=== PATIENT | female | born 1990 | race Caucasian/White ===

== ENCOUNTER 2021-02-24 16:17 | Emergency (ER) | payer OTHER, SELFPAY ==
[2021-02-24 16:26] VITALS: BP 137/78; PULSE 87; RESP 16; TEMP 36.8; O2SAT 100
--- NOTE | 2021-02-24 16:58 | ED.FEMALEGU ---
HPI - Female Genitourinary General Chief complaint: Urogenital-Female Stated complaint: Possible UTI or possible Kidney infection Time Seen by Provider: 02/24/21 16:59 Source: patient Mode of arrival: ambulatory Limitations: no limitations History of Present Illness HPI Narrative: 30 year old female who presents to [facility] care with complaints of having burning of urination for the past 2 weeks with decrease in urine. Patient reports that she has had some suprapubic pressure with some bilateral flank pain, denies any known fevers. chills, or sweats. Patient has history of chronic bladder dysfunction and has had to do urine catheterizations in the past. Patient denies any known fevers, chills or sweats, denies any vaginal discharge or itching or concerns of possible STD's. MD elicited complaint: dysuria Related Data Home Medications Medication Instructions Recorded Confirmed lamotrigine [Lamictal] 100 mg PO DAILY 02/24/21 02/24/21 risperidone [Risperdal] 0.5 mg PO DAILY 02/24/21 02/24/21 Allergies Allergy/AdvReac Type Severity Reaction Status Date / Time allantoin [From Orajel] Allergy swelling Verified 02/24/21 16:42 gums benzalkonium chloride Allergy swelling Verified 02/24/21 16:42 [From Orajel] gums benzocaine [From Orajel] Allergy swelling Verified 02/24/21 16:42 gums carbamide peroxide Allergy swelling Verified 02/24/21 16:42 [From Orajel] gums menthol Allergy throat Verified 02/24/21 16:42 closes trazodone Allergy burning to Verified 02/24/21 16:42 feet zinc chloride [From Orajel] Allergy swelling Verified 02/24/21 16:42 gums Review of Systems Review of Systems: CONSTITUTIONAL: Denies fever, chills, or sweats. EYES: Denies visual changes, redness, or discharge. ENT: Denies rhinorrhea, congestion, sore throat, or otalgia. CARDIOVASCULAR: Denies chest pain, palpitations, or edema. RESPIRATORY: Denies cough or dyspnea. GASTROINTESTINAL: Suprapubic area abdominal pain, she denies any nausea vomiting or diarrhea GENITOURINARY: positive dysuria or hematuria. SKIN: Denies rash or itching. MUSCULOSKELETAL: Positive bilateral flank pain, no joint pain, or myalgia. NEUROLOGIC: Denies headache, numbness, or weakness. PSYCHIATRIC: Positive for anxiety or depression. All systems reviewed & are unremarkable except as noted in HPI and below PMFSH Past Medical History Medical History (Updated 02/27/21 @ 10:25 by Tamiko Johnson NP) Asthma Bipolar 1 disorder Collapsed lung Concussion COPD (chronic obstructive pulmonary disease) Fracture, clavicle Fracture, ribs Fractured nose UTI (urinary tract infection) Surgical History Surgical History (Updated 02/27/21 @ 10:27 by Tamiko Johnson NP) H/O chest tube placement Family History Family History (Updated 02/26/21 @ 16:35 by Tamiko Johnson NP) Grandparent Breast cancer Malignant neoplasm of prostate Throat cancer Cancer of thyroid History of kidney cancer Mother Heart disease Bipolar 1 disorder Father Cerebrovascular accident Heart disease Diabetes mellitus Other Brain aneurysm Hypertension Social History Social History (Updated 02/24/21 @ 17:19 by Tamiko Johnson NP) Smoking packs per day: 1 Smoking cigarettes per day: 20.0 Years smoked: 19 Smoking pack-years: 19.00 Smoking status: Current every day smoker Alcohol intake: former Alcohol use details: going to meetings Substance use: current Substance use type: marijuana Living arrangements: with family Gender identity (if verbalized by the patient): Female Comments At time of signature, agree with nursing past medical, surgical, social and family history. There is no relevant family history pertinent to the presenting complaint Exam Narrative: GENERAL: Well-appearing, well-nourished, and in no acute distress. HEAD: Normocephalic, atraumatic. EYES: PERRLA and EOMI. ENT: Nares clear, no rhinorrhea or epi
== END 2021-02-24 17:27 | disposition home or self-care (01) ==
PROVIDERS: Emergency Provider Registered Nurse; PCP Nurse Practitioner Family
DX: N39.0 Urinary tract infection, site not specified (principal); F17.210 Nicotine dependence, cigarettes, uncomplicated; J45.909 Unspecified asthma, uncomplicated; J44.9 Chronic obstructive pulmonary disease, unspecified; F31.9 Bipolar disorder, unspecified
CPT/HCPCS: 81003; 87086; 87088; 99213; G0463

== ENCOUNTER 2021-05-20 08:53 | Emergency (ER) | payer OTHER, SELFPAY ==
[2021-05-20 09:10] VITALS: BP 118/72; PULSE 87; RESP 20; TEMP 36.6; O2SAT 99
--- NOTE | 2021-05-20 09:56 | ED.URI ---
HPI - URI/Sore Throat General Chief Complaint: Upper Respiratory Infection Stated Complaint: Congestion,Cough Source: patient and RN notes reviewed Limitations: no limitations History of Present Illness HPI Narrative: The patient, here with sick daughter with otitis, has a shorter 1 day history of cough, congestion nasal drip and occasional sneezing. Symptoms are mild somewhat worse at night; there are pet cat/smoker triggers in the house. No fever [T 99], wheezing, vomiting/diarrhea, frequency/dysuria. Patient requests refill of inhaler Related Data Home Medications Medication Instructions Recorded Confirmed lamotrigine [Lamictal] 100 mg PO DAILY 02/24/21 05/20/21 risperidone [Risperdal] 0.5 mg PO DAILY 02/24/21 05/20/21 Allergies Allergy/AdvReac Type Severity Reaction Status Date / Time allantoin [From Orajel] Allergy swelling Verified 05/20/21 09:12 gums benzalkonium chloride Allergy swelling Verified 05/20/21 09:12 [From Orajel] gums benzocaine [From Orajel] Allergy swelling Verified 05/20/21 09:12 gums carbamide peroxide Allergy swelling Verified 05/20/21 09:12 [From Orajel] gums menthol Allergy throat Verified 05/20/21 09:12 closes trazodone Allergy burning to Verified 05/20/21 09:12 feet zinc chloride [From Orajel] Allergy swelling Verified 05/20/21 09:12 gums Review of Systems Review of Systems: General/Constitutional: No weight loss,fever Eyes: N0: Redness,discharge Ears/Nose/Throat: No: Epistaxis,ear discharge Respiratory: Denies: Hemoptysis Gastrointestinal: No Vomiting, Bleeding-rectal Skin: No Lumps, eruption Neurologic: No Focal Weakness,Sz Hematologic: Denies: Petechiae/Purpura Psychiatric: No: Suicida ideationl All Other Systems: Reviewed and Negative [facility] Past Medical History Medical History (Updated 05/20/21 @ 10:02 by Arron Moore MD) Asthma Bipolar 1 disorder Collapsed lung Concussion COPD (chronic obstructive pulmonary disease) Fracture, clavicle Fracture, ribs Fractured nose UTI (urinary tract infection) Surgical History Surgical History (Updated 02/27/21 @ 10:27 by Tamiko Johnson NP) H/O chest tube placement Family History Family History (Updated 02/26/21 @ 16:35 by Tamiko Johnson NP) Grandparent Breast cancer Malignant neoplasm of prostate Throat cancer Cancer of thyroid History of kidney cancer Mother Heart disease Bipolar 1 disorder Father Cerebrovascular accident Heart disease Diabetes mellitus Other Brain aneurysm Hypertension Social History Social History (Updated 02/24/21 @ 17:19 by Tamiko Johnson NP) Smoking packs per day: 1 Smoking cigarettes per day: 20.0 Years smoked: 19 Smoking pack-years: 19.00 Smoking status: Current every day smoker Alcohol intake: former Alcohol use details: going to meetings Substance use: current Substance use type: marijuana Gender identity (if verbalized by the patient): Female Comments At time of signature, agree with nursing past medical, surgical, social and family history. There is no relevant family history pertinent to the presenting complaint Exam Narrative: General Appearance: Well appearing, Well nourished EYE: PERRLA, Conjunctiva clear Ears: Auditory canal normal, TM normal Nose: Rhinorrhea, Mucousal erythema Mouth/Throat: MM moist, Uvula midline, Pharyngeal erythema Neck: Supple, No adenopathy Respiratory: No respiratory distress, Breath sounds equal, Clear to auscultation Cardiovascular: RRR, No JVD Musculoskeletal: Non tender, Normal strength Skin: Warm, Dry Neurological: A&O x3, CN II-XII intact Psychiatric: Normal mood, Normal affect Course Vital Signs Vital signs: Vital Signs Temperature 98 F 05/20/21 09:10 Pulse Rate 87 05/20/21 09:10 Respiratory Rate 20 05/20/21 09:10 Blood Pressure 118/72 05/20/21 09:10 Pulse Oximetry 99 05/20/21 09:10 Temperatur
== END 2021-05-20 10:05 | disposition home or self-care (01) ==
PROVIDERS: Emergency Provider Emergency Medicine
DX: J06.9 Acute upper respiratory infection, unspecified (principal); F17.210 Nicotine dependence, cigarettes, uncomplicated; J45.909 Unspecified asthma, uncomplicated; J44.9 Chronic obstructive pulmonary disease, unspecified; F31.9 Bipolar disorder, unspecified
CPT/HCPCS: 99213; G0463

== ENCOUNTER 2021-06-02 14:40 | Emergency (ER) | payer OTHER, SELFPAY ==
[2021-06-02 15:01] VITALS: BP 116/66; PULSE 87; RESP 18; TEMP 36.8; O2SAT 99
--- NOTE | 2021-06-02 15:16 | ED.URI ---
HPI - URI/Sore Throat General Chief Complaint: Upper Respiratory Infection Stated Complaint: Cold/flu Time Seen by Provider: 06/02/21 15:08 Source: patient and RN notes reviewed Mode of arrival: ambulatory Limitations: no limitations History of Present Illness HPI Narrative: Patricia is a 31-year-old female patient who ambulated into the [facility]. Patient states she has had a sore throat chest congestion headache cough that started on Tuesday. Patient states that she was sick and seen here on 1026 given albuterol and cough medicine with codeine. Patient states she was better within a week and symptoms started again on 05/28/2021. Patient states the inhaler helps with her cough and asthma-like symptoms. Patient has been taking Tylenol and ibuprofen. Patient does continue to smoke 1 pack/day. Patient does have a history of COPD and asthma. MD elicited complaint: sore throat Related Data Home Medications Medication Instructions Recorded Confirmed lamotrigine 25 mg PO DAILY 06/02/21 06/02/21 risperidone 0.5 mg PO DAILY 06/02/21 06/02/21 Allergies Allergy/AdvReac Type Severity Reaction Status Date / Time allantoin [From Orajel] Allergy swelling Verified 06/02/21 15:12 gums benzalkonium chloride Allergy swelling Verified 06/02/21 15:12 [From Orajel] gums benzocaine [From Orajel] Allergy swelling Verified 06/02/21 15:12 gums carbamide peroxide Allergy swelling Verified 06/02/21 15:12 [From Orajel] gums menthol Allergy throat Verified 06/02/21 15:12 closes trazodone Allergy burning to Verified 06/02/21 15:12 feet zinc chloride [From Orajel] Allergy swelling Verified 06/02/21 15:12 gums Review of Systems Review of Systems: CONSTITUTIONAL: Denies body aches,+fever, denies chills, or sweats. EYES: Denies visual changes, redness, or discharge. ENT: + rhinorrhea, +congestion, sore throat, or otalgia. CARDIOVASCULAR: Denies chest pain, palpitations, or edema. RESPIRATORY: + cough denies dyspnea. GASTROINTESTINAL: Denies abdominal pain, nausea, vomiting, or diarrhea. GENITOURINARY: Denies dysuria or hematuria. SKIN: Denies rash, itching, or wounds. MUSCULOSKELETAL: Denies back pain, joint pain, or myalgia. NEUROLOGIC: Denies headache, numbness, tingling, or weakness. PSYCH: Denies depression or anxiety. All systems reviewed & are unremarkable except as noted in HPI and below PMFSH Past Medical History Medical History Asthma Bipolar 1 disorder Collapsed lung Concussion COPD (chronic obstructive pulmonary disease) Fracture, clavicle Fracture, ribs Fractured nose UTI (urinary tract infection) Surgical History Surgical History H/O chest tube placement Family History Family History Grandparent Breast cancer Malignant neoplasm of prostate Throat cancer Cancer of thyroid History of kidney cancer Mother Heart disease Bipolar 1 disorder Father Cerebrovascular accident Heart disease Diabetes mellitus Other Brain aneurysm Hypertension Social History Social History Smoking packs per day: 1 Smoking cigarettes per day: 20.0 Years smoked: 19 Smoking pack-years: 19.00 Smoking status: Current every day smoker Alcohol intake: former Alcohol use details: going to meetings Substance use: current Substance use type: marijuana Gender identity (if verbalized by the patient): Female Comments At time of signature, I have reviewed and agree with nursing past medical, surgical, social and family history unless otherwise noted. Please see nursing chart for further information. There is no relevant family history pertinent to the presenting complaint Exam Narrative: GENERAL: Well-appearing, well-nourished, and in no acu
== END 2021-06-02 15:30 | disposition home or self-care (01) ==
PROVIDERS: Emergency Provider Nurse Practitioner Family
DX: B37.0 Candidal stomatitis (principal); F17.210 Nicotine dependence, cigarettes, uncomplicated; J45.909 Unspecified asthma, uncomplicated; J44.9 Chronic obstructive pulmonary disease, unspecified; F31.9 Bipolar disorder, unspecified
CPT/HCPCS: 99213; G0463

== ENCOUNTER 2022-12-30 05:51 | Emergency (ER) | payer OTHER, SELFPAY ==
--- NOTE | ~2022-12-30 | XR_ITS ---
Right Forearm AP and lateral views of the right forearm were performed. Clinical History: Pain Findings: No fracture or dislocation is seen. Osseous alignment in anatomic. Joint spaces are prese rved. Soft tissues are unremarkable. Impression: Unremarkable exam. Reviewed, dictated and finalized at location M. Impression: Unremarkable exam.
[2022-12-30 05:57] VITALS: BP 124/90; PULSE 79; RESP 20; TEMP 36.8; O2SAT 98
--- NOTE | 2022-12-30 07:46 | ED.UPPEXIN ---
HPI - Extremity Injury (Upper) General Chief Complaint: Extremity Injury, Upper Stated Complaint: fall, arm pain Time Seen by Provider: 12/30/22 07:46 Source: patient Limitations: no limitations History of Present Illness HPI narrative: Patient had a fall down hill 1 week ago with confusion and the bruises of the right forearm. He denies other injuries. Related Data Allergies Allergy/AdvReac Type Severity Reaction Status Date / Time bee venom protein (honey bee) Allergy Other Verified 12/30/22 06:33 menthol Allergy Other Verified 12/30/22 06:33 trazodone Allergy Other Verified 12/30/22 06:33 zoloft Allergy Other Uncoded 12/30/22 06:33 Review of Systems Review of Systems: All systems reviewed & are unremarkable except as noted in HPI and below Exam Narrative: General appearance: Well-developed, well-nourished Skin: Normal color Head: Normocephalic, nontraumatic Eyes: Clear conjunctiva ENT: Oropharynx normal, ears normal, nose normal Neck: Supple, nontender Chest and respiratory: Airway patent, no respiratory distress, no accessory muscle use Heart: Regular rate/rhythm Abdomen: Soft, nontender, no organomegaly, quiet bowel sounds Vascular: Normal peripheral pulses, normal capillary refill. Musculoskeletal: Right forearm showed no deformity, no bruises, no swelling, slightly diffusely tender with limited range of motion like supination and pronation. Neurologic: Alert and oriented ?3, TAMALE MA[employer]ER is normal as tested, no gross motor deficit Course Vital Signs Vital signs: Vital Signs Temperature 36.8 C 12/30/22 05:57 Pulse Rate 79 12/30/22 05:57 Respiratory Rate 20 12/30/22 05:57 Blood Pressure 124/90 12/30/22 05:57 Pulse Oximetry 98 12/30/22 05:57 Oxygen Delivery Room Air 12/30/22 05:57 Temperature 36.8 C 12/30/22 05:57 Pulse Rate 79 12/30/22 05:57 Respiratory Rate 20 12/30/22 05:57 Blood Pressure 124/90 12/30/22 05:57 Pulse Oximetry 98 12/30/22 05:57 Oxygen Delivery Room Air 12/30/22 05:57 MDM - Extremity Injury (Upper) MDM Narrative Medical decision making narrative: Right forearm contusion is my concern, x-ray showed no acute abnormalities Differential Diagnosis Differential diagnosis: Likely sprain and strain of wrist, fracture of wrist, Colles' fracture and fracture of humerus Imaging Data Radiologist's impression: Impressions Forearm X-Ray 12/30/22 06:40 Impression: Unremarkable exam. Critical Care Time Critical Care Time Critical Care Time: No Discharge Plan Discharge Clinical Impression: Contusion of forearm, right Qualifiers: Encounter type: initial encounter Qualified Code(s): S50.11XA - Contusion of right forearm, initial encounter Patient Disposition: Home, Self-Care Condition: Stable Instructions: Antibiotic Form, Contusion in Adults (ED) Additional Instructions: Return if symptoms are worsening , call your family physician for appointment, take Tylenol as as needed for aches and pain, continue home medications., Take ibuprofen 600 every 6 hours Follow-up/Referrals: Tali,MD Micah [Primary Care Provider] -
[2022-12-30 08:52] VITALS: BP 126/88; PULSE 90; RESP 20; O2SAT 99
== END 2022-12-30 08:55 | disposition home or self-care (01) ==
PROVIDERS: Emergency Provider Emergency Medicine; PCP Hospitalist
DX: S50.11XA Contusion of right forearm, initial encounter (principal); W10.2XXA Fall (on)(from) incline, initial encounter
CPT/HCPCS: 73090; 99283

== ENCOUNTER 2023-01-13 20:25 | Emergency (ER) | payer OTHER, SELFPAY ==
[2023-01-13 20:39] VITALS: BP 123/77; PULSE 66; RESP 16; TEMP 36.4; O2SAT 100
--- NOTE | 2023-01-13 21:18 | PC.NURSE ---
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 pt. ambulated out of ed w/ steady gait. skin pink warm and dry.
== END 2023-01-13 22:32 | disposition left against medical advice (07) ==
PROVIDERS: PCP Hospitalist
DX: R10.9 Unspecified abdominal pain (principal)
CPT/HCPCS: 99199

== ENCOUNTER 2023-01-14 12:50 | Emergency (ER) | payer OTHER, SELFPAY ==
[2023-01-14 12:55] VITALS: BP 154/81; PULSE 64; RESP 16; TEMP 36.2; O2SAT 100
--- NOTE | 2023-01-14 13:24 | ED.SKABFB ---
HPI - Skin/Abscess/Foreign Bdy General Chief complaint: Skin/Abscess/Foreign Body Stated complaint: UTI, flu-like symptoms, tick bites Time Seen by Provider: 01/14/23 13:01 History of Present Illness HPI narrative: This is a 32-year-old female transitioning to male with reported past history of urinary retention, who presents to the emergency department complaining of a mass in the left groin that repeatedly drains pus and suprapubic abdominal pain. The patient states he recently had multiple tick bites and removed them. He was placed on an antibiotic, but notes 1 continuously drains purulent fluid. He complains of 8/10 sharp pain. He also complains of 6/10 suprapubic abdominal pain that he says is similar to urinary tract infections. Related Data Allergies Allergy/AdvReac Type Severity Reaction Status Date / Time bee venom protein (honey bee) Allergy Other Verified 01/14/23 13:03 menthol Allergy Other Verified 01/14/23 13:03 trazodone Allergy Other Verified 01/14/23 13:03 zoloft Allergy Other Uncoded 01/14/23 13:03 Review of Systems Review of Systems: CONSTITUTIONAL: Denies fever, chills, or sweats. CARDIOVASCULAR: Denies chest pain, palpitations, or edema. RESPIRATORY: Denies cough or dyspnea. GASTROINTESTINAL: Suprapubic abdominal pain denies nausea, vomiting, or diarrhea. GENITOURINARY: Dysuria denies hematuria. SKIN: Denies rash or itching. MUSCULOSKELETAL: Denies back pain, joint pain, or myalgia. NEUROLOGIC: Denies headache, numbness, dizziness, or weakness. PSYCHIATRIC: Denies anxiety or depression. Exam Narrative: GENERAL: Well-developed, well-nourished, appears uncomfortable HEAD: Normocephalic, atraumatic. EYES: PERRLA and EOMI. ENT: Nares clear, no rhinorrhea or epistaxis. Mucous membranes moist. Oropharynx without tonsillar hypertrophy exudate or other lesions. NECK: Supple. No adenopathy or masses. No carotid bruits or JVD CHEST: Clear to auscultation. No respiratory distress. No wheezes rales or rhonchi HEART: Regular rate and rhythm. No murmur heard. Normal peripheral pulses. ABDOMEN: Soft, nontender, nondistended, normal active bowel sounds. Right-sided CVA tenderness to palpation EXTREMITIES: Normal range of motion. No edema. SKIN: A 0.5 x 0.5 cm tender, fluctuant mass is noted in the skin of the right groin consistent with abscess. There is no active purulent drainage or bleeding noted. Warm, dry, no rash. NEURO: No focal deficits. Alert and oriented x3. PSYCH: Normal mood and affect. Course Course Emergency Course: 14:05 - Patient reports the patient had 350 mL of retained urine after voiding. We will place a Eid catheter. The patient states he has been referred by his primary care doctor, Dr. Cesar for further evaluation. 14:28 - UA is consistent with urinary tract infection. 15:05 - Mass of left groin drained by I&D. Please see procedure note. The patient had some improvement in abdominal pain after catheter placement will discharge with antibiotics for UTI and primary care follow-up. Discussed return and emergency precautions including signs/symptoms of acute abdomen and intractable vomiting. The patient voiced understanding and is comfortable with the plan. All questions answered to his satisfaction. Vital Signs Vital signs: Vital Signs Temperature 97.2 F L 01/14/23 12:55 Pulse Rate 64 01/14/23 12:55 Respiratory Rate 16 01/14/23 12:55 Blood Pressure 154/81 H 01/14/23 12:55 Pulse Oximetry 100 01/14/23 12:55 Oxygen Delivery Room Air 01/14/23 12:55 Temperature 97.2 F L 01/14/23 12:55 Pulse Rate 64 01/14/23 12:55 Respiratory Rate 16 01/14/23 12:55 Blood Pressure 154/81 H 01/14/23 12:55 Pulse Oximetry 100 01/14/23 12:55 Oxygen Delivery Room Air 01/14/23 12:55 Procedures Abscess I/D other: Date of Incision: 01/14/23 Time of Incision: 15:05 Side (if applicable): left (Anterior groin) Sedation/analgesia: non
[2023-01-14] MEDS: PROCHLORPERAZINE MALEATE 5 MG TABLET 10 MG PO (13:42)
[2023-01-14] MEDS: KETOROLAC 30 MG/ML VIAL (*BKC) IM (13:42)
[2023-01-14] MEDS: LIDO 1%/EPINEPHRINE 1:100,000 20 ML VIAL 10 ML INFILTRATE (13:47)
--- NOTE | 2023-01-14 13:47 | PC.NURSE ---
Post urine residual is about 400mL in patient's bladder
[2023-01-14 14:15] LABS: Appearance Urine Turbid (Clear); Bacteria Urine 4+ /hpf; Bilirubin Urine Negative (Negative); Blood Urine Negative (Negative); Color Urine Dark Yellow (Yellow); Glucose Urine UA Negative (Negative); Ketones Urine Trace mg/dL (Negative); Leukocyte Esterase Ur 3+ LEU/UL (Negative); Need Manual Microscopic Reviewed; Nitrate Urine Negative (Negative); Protein Urine 1+ mg/dL (Negative); RBC Urine 0-2 /hpf (0-2); Specific Grav Ur 1.021 (1.001-1.035); Squamous Epithelial Cell Urine Many /hpf (Few); WBC Urine >100 /hpf; pH Urine 7.5 (5.0-9.0)
[2023-01-14 14:17] LABS: Add Urine Microscopic? YES
== END 2023-01-14 15:23 | disposition home or self-care (01) ==
PROVIDERS: Emergency Provider Preventive Medicine Aerospace Medicine; PCP Hospitalist
DX: N12 Tubulo-interstitial nephritis, not specified as acute or chronic (principal); L02.214 Cutaneous abscess of groin; R33.9 Retention of urine, unspecified
CPT/HCPCS: 10060; 81001; 87086; 87088; 99283; A9270; J1885

== ENCOUNTER 2023-01-16 10:14 | Emergency (ER) | payer OTHER, SELFPAY ==
--- NOTE | 2023-01-16 10:53 | PC.NURSE ---
Patient reported there was too much pain and was going to leave. This RN did verify that there was urinary output in the urinary bag prior to leaving and urine was present.
== END 2023-01-16 10:56 | disposition left against medical advice (07) ==
PROVIDERS: PCP Hospitalist
DX: Z53.21 Procedure and treatment not carried out due to patient leaving prior to being seen by health care provider (principal)
CPT/HCPCS: 99199

== ENCOUNTER 2023-01-21 09:28 | Emergency (ER) | payer OTHER, SELFPAY ==
--- NOTE | ~2023-01-21 | CT_ITS ---
CT of the Abdomen and Pelvis: Indication: Abdominal pain Technique: 2.5 mm axial scans were obtained through the abdomen and pelvis following intravenous adm inistration of 100 cc of Omnipaque 350. Dose reduction technique was used on this scan by utilizing a utomated exposure control and iterative reconstruction technique. The dose-length product (DLP) was 2 16.68 mGy-cm. Findings: Scans through the lung bases are unremarkable. The liver, spleen, pancreas, gallbladder, adrenals and kidneys are within normal limits. No evidence of aortic aneurysm. No lymphadenopathy. No bowel obstruction or bowel wall thickening. There is no evidence to suggest acute appendicitis. Images through the pelvis were performed. Urinary bladder unremarkable. No adnexal mass seen. No asci wei. Impression: No significant abnormalities seen. Reviewed, dictated and finalized at [facility]. Impression: No significant abnormalities seen.
[2023-01-21 09:29] VITALS: BP 122/67; PULSE 82; RESP 20; TEMP 36.8; O2SAT 99
[2023-01-21 09:52] LABS: Basophils Absolute Auto 0.1 K/mm3 (0.0-0.1); Basophils Percent Auto 0.5 % (0.2-1.2); Eosinophils Absolute Auto 0.2 K/mm3 (0-0.3); Eosinophils Percent Auto 1.3 % (0-4.4); Hematocrit 40.2 % (37.0-47.0); Immature Granulocyte Absolute 0.05 K/mm3 (0.00-0.031); Immature Granulocyte Percent A 0.4 % (0-0.5); Lymphocytes Absolute Auto 1.74 K/mm3 (0.9-3.2); Lymphocytes Percent Auto 15.5 % (18.3-44.2); Mean Corpuscular HGB Conc 34.8 g/dl (32-36); Mean Corpuscular Hemoglobin 33.4 pg (26-34); Mean Corpuscular Volume 95.9 fl (80-100); Mean Platelet Volume 10.3 fl (7.4-10.4); Monocytes Percent Auto 8.6 % (2.6-8.5); Neutrophils Absolute Auto 8.2 K/mm3 (1.3-6.7); Neutrophils Percent Auto 73.7 % (45.5-73.1); Platelet Count Result 239 k/mm3 (150-375); Red Blood Count 4.19 M/mm3 (4.2-5.4); Red Cell Distribution Width 13.8 % (11.5-14.5); White Blood Count 11.2 K/mm3 (4.5-10.0)
[2023-01-21 10:02] LABS: Alanine Aminotransferase 33 U/L (6-35); Albumin Level 4.4 g/dL (3.5-5.1); Alkaline Phosphatase 42 U/L (38-126); Anion Gap 7 mmol/L (8-16); Aspartate Amino Transferase 77 U/L (14-36); Bilirubin,Total 1.2 mg/dL (0.2-1.3); Blood Urea Nitrogen 16 mg/dL (7-17); Calcium 8.8 mg/dL (8.4-10.2); Carbon Dioxide 26 mmol/L (22-30); Chloride 104 mmol/L (98-107); Estimated CRCL calculation 81 ml/min; Estimated Glomerular Filt Rate > 60; Glucose 168 mg/dL (65-110); Lipase 138 U/L (23-300); Potassium 3.7 mmol/L (3.4-5.0); Sodium 137 mmol/L (137-145)
--- NOTE | 2023-01-21 10:59 | ED.GENADULT ---
HPI - General Adult General Chief complaint: Urogenital-Female Stated complaint: ?kidney infxn Time Seen by Provider: 01/21/23 09:45 Source: patient Mode of arrival: EMS Limitations: no limitations History of Present Illness HPI narrative: Patient is a 32-year-old transgender female to male, who identifies as Tez, who presents to the ED via EMS with concern for urinary tract infection. Patient reports he was recently seen in the ED this week and diagnosed with a urinary tract infection. He was having urinary retention at that time and had a Eid catheter placed. He was prescribed Bactrim, but did not finish this. He states he was kicked out of his motel yesterday and has been living in the [facility] with his child since yesterday. He removed the Eid catheter himself. He complains of difficulty urinating, lower abdominal pain, nausea, shakiness, and general malaise. Denies known fever. Denies vomiting. Denies diarrhea. Related Data Allergies Allergy/AdvReac Type Severity Reaction Status Date / Time sertraline Allergy Unknown Verified 01/21/23 11:06 bee venom protein (honey bee) Allergy Other Verified 01/21/23 09:37 menthol Allergy Other Verified 01/21/23 09:37 trazodone Allergy Other Verified 01/21/23 09:37 Review of Systems Review of Systems: CONSTITUTIONAL: Denies fever, chills, or sweats. CARDIOVASCULAR: Denies chest pain. RESPIRATORY: Denies dyspnea. GASTROINTESTINAL: See HPI. GENITOURINARY: See HPI. SKIN: Denies rash or itching. MUSCULOSKELETAL: See HPI. NEUROLOGIC: See HPI. All systems reviewed & are unremarkable except as noted in HPI and below Exam Narrative: GENERAL: Disheveled, unkempt, malodorous, visibly dirty, thin, non-toxic, in no acute distress. HEAD: Normocephalic, atraumatic. NECK: Supple. No adenopathy, no masses. RESPIRATORY: Airway patent, respirations nonlabored. Clear to auscultation bilaterally, no rales, rhonchi, wheezing. CARDIOVASCULAR: Regular rate and rhythm without murmurs, rubs, or gallops. Peripheral pulses 2+ and equal bilaterally. ABDOMINAL: Soft, diffuse tenderness throughout lower abdomen, nondistended, no hepatosplenomegaly. Normoactive BS. MUSCULOSKELETAL: Moves all extremities. Strength/ROM intact without gross deformities. SKIN: Warm, dry, normal color. No rashes. NEURO: A&O X3. Speech clear. Cranial nerves II-XII grossly intact. Steady gait. Tremulous in all extremities. PSYCHIATRIC: Appropriate mood and affect. Normal interaction. Course Vital Signs Vital signs: Vital Signs Temperature 98.2 F 01/21/23 09:29 Pulse Rate 82 01/21/23 09:29 Respiratory Rate 20 01/21/23 09:29 Blood Pressure 122/67 01/21/23 09:29 Pulse Oximetry 99 01/21/23 09:29 Oxygen Delivery Room Air 01/21/23 09:29 Temperature 98.2 F 01/21/23 09:29 Pulse Rate 82 01/21/23 09:29 Respiratory Rate 20 01/21/23 09:29 Blood Pressure 122/67 01/21/23 09:29 Pulse Oximetry 99 01/21/23 09:29 Oxygen Delivery Room Air 01/21/23 09:29 Medical Decision Making MDM Narrative Medical decision making narrative: Patient presented to ED with concern for UTI, recently diagnosed with UTI, started on Bactrim which he has not finished, also had recent issue with urinary retention, removed Eid catheter himself. Initial bladder scan revealed less than 250 mL of urine. Patient did require straight cath to obtain urine specimen, but was later able to urinate by himself. Patient disheveled appearing, but otherwise stable, no acute distress. Records were reviewed from recent ED visit. CBC with leukocytosis of 11.2. CMP with stable electrolytes, stable kidney function, blood glucose mildly elevated. Patient made aware of this. Lipase within normal limits. Normal LFTs. Urine still consistent with infection, trace ketones, 1+ leuk esterase, 6-10 WBC. Sent for culture. Patient had previously been prescribed Bactrim. He does still have this, but states it is in the walls with th
[2023-01-21] MEDS: SODIUM CHLORIDE 0.9% IV 1,000 ML 999 ML IV CONT (11:19)
--- NOTE | 2023-01-21 11:31 | PC.NURSE ---
report received from Dominga FANG
[2023-01-21 11:33] LABS: Magnesium 2.4 mg/dL (1.6-2.3)
[2023-01-21 12:04] LABS: Appearance Urine Clear (Clear); Bacteria Urine None Seen /hpf; Bilirubin Urine Negative (Negative); Blood Urine Negative (Negative); Color Urine Yellow (Yellow); Glucose Urine UA Negative (Negative); Ketones Urine Trace mg/dL (Negative); Leukocyte Esterase Ur 1+ LEU/UL (Negative); Nitrate Urine Negative (Negative); Non Pathogenic Casts 0-2; Protein Urine Negative (Negative); RBC Urine 0-2 /hpf (0-2); Specific Grav Ur 1.022 (1.001-1.035); Squamous Epithelial Cell Urine None seen /hpf (Few); pH Urine 5.5 (5.0-9.0)
[2023-01-21 12:09] LABS: Add Urine Microscopic? YES
[2023-01-21] MEDS: SODIUM CHLORIDE 0.9% IV 500 ML 999 ML IV CONT (12:28)
--- NOTE | 2023-01-21 12:49 | PC.NURSE ---
patient eating tray at this time
[2023-01-21 12:52] LABS: Amphetamine Screen Urine Negative (Negative); Barbiturate Screen Urine Negative (Negative); Benzodiazepines Screen Urine Negative (Negative); Cannabinoid Screen Urine Positive (Negative); Cocaine Screen Urine Negative (Negative); Methadone Screen Urine Negative (Negative); Opiate Screen Urine Negative (Negative); Phencyclidine Screen Urine Negative (Negative)
[2023-01-21 12:53] LABS: Ethanol < 10 mg/dL (<10)
== END 2023-01-21 15:00 | disposition other institution (70) ==
PROVIDERS: Emergency Medicine; Emergency Provider Physician Assistant; PCP Hospitalist
DX: N30.00 Acute cystitis without hematuria (principal); Z59.02 Unsheltered homelessness
CPT/HCPCS: 36415; 74177; 80053; 80307; 81001; 81025; 83690; 83735; 85025; 87086; 96360; 96361; 99284; J7030; J7040; Q9967

== ENCOUNTER 2023-01-23 03:29 | Emergency (ER) | payer OTHER, SELFPAY ==
[2023-01-23 03:35] VITALS: BP 144/89; PULSE 81; RESP 20; TEMP 37.3; O2SAT 98
[2023-01-23 04:29] LABS: Basophils Absolute Auto 0.1 K/mm3 (0.0-0.1); Basophils Percent Auto 0.7 % (0.2-1.2); Eosinophils Absolute Auto 0.2 K/mm3 (0-0.3); Eosinophils Percent Auto 2.2 % (0-4.4); Hematocrit 44.5 % (37.0-47.0); Hemoglobin 15.4 g/dL (12.0-15.0); Immature Granulocyte Absolute 0.02 K/mm3 (0.00-0.031); Immature Granulocyte Percent A 0.2 % (0-0.5); Lymphocytes Absolute Auto 3.09 K/mm3 (0.9-3.2); Lymphocytes Percent Auto 34.8 % (18.3-44.2); Mean Corpuscular HGB Conc 34.6 g/dl (32-36); Mean Corpuscular Hemoglobin 33.2 pg (26-34); Mean Corpuscular Volume 95.9 fl (80-100); Mean Platelet Volume 10.7 fl (7.4-10.4); Monocytes Absolute Auto 0.7 K/mm3 (0.1-0.6); Monocytes Percent Auto 8.2 % (2.6-8.5); Neutrophils Absolute Auto 4.8 K/mm3 (1.3-6.7); Neutrophils Percent Auto 53.9 % (45.5-73.1); Platelet Count Result 233 k/mm3 (150-375); Red Blood Count 4.64 M/mm3 (4.2-5.4); White Blood Count 8.9 K/mm3 (4.5-10.0)
[2023-01-23] MEDS: SODIUM CHLORIDE 0.9% IV 1,000 ML 999 ML IV CONT ×2 (04:29→04:30)
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
[2023-01-23 04:39] LABS: Ethanol 78 mg/dL (<10)
[2023-01-23 04:41] LABS: Alanine Aminotransferase 50 U/L (6-35); Albumin Level 4.5 g/dL (3.5-5.1); Alkaline Phosphatase 46 U/L (38-126); Anion Gap 9 mmol/L (8-16); Aspartate Amino Transferase 92 U/L (14-36); Bilirubin,Total 0.8 mg/dL (0.2-1.3); Blood Urea Nitrogen 7 mg/dL (7-17); Calcium 9.2 mg/dL (8.4-10.2); Carbon Dioxide 27 mmol/L (22-30); Chloride 104 mmol/L (98-107); Estimated CRCL calculation 118 ml/min; Estimated Glomerular Filt Rate > 60; Glucose 62 mg/dL (65-110); Magnesium 2.2 mg/dL (1.6-2.3); Potassium 3.8 mmol/L (3.4-5.0); Sodium 140 mmol/L (137-145)
--- NOTE | 2023-01-23 05:00 | PC.NURSE ---
pt was demanding that he be straight cathed. PT sts, you people are so mean. I want to be straight cathed and you won't help me. notified of pts demand and ivf are hanging. No order for a cath was given. Pt was very angry and was yelling at this RN for not cathing him. PT had flight of speech. PT also admitted that he smoked a joint and didn't know what was in it. Pt was demanding to be admitted. Pt was told that we have to wait for test results.
--- NOTE | 2023-01-23 05:06 | PC.NURSE ---
pt was given cloth scrub pants and a blue scrub shirt and left AMA
--- NOTE | 2023-02-04 00:55 | PC.NURSE ---
LATE ENTRY This note is being entered to document information to the patient's record. The following information was omitted on [01/25/2023], by [shelly]. SYLWIA wa stopped on 01/23/23 @ 05:29
== END 2023-01-23 05:09 | disposition left against medical advice (07) ==
PROVIDERS: Emergency Provider Emergency Medicine; PCP Hospitalist
DX: F19.90 Other psychoactive substance use, unspecified, uncomplicated (principal); F10.20 Alcohol dependence, uncomplicated; Z59.00 Homelessness unspecified; Y90.9 Presence of alcohol in blood, level not specified; Z79.890 Hormone replacement therapy
CPT/HCPCS: 36415; 80053; 80307; 83735; 85025; 96360; 99283; J7030

== ENCOUNTER 2023-01-23 08:18 | Observation (INO) | payer OTHER, SELFPAY ==
[2023-01-23] VITALS (8 sets, daily range): BP systolic 123–132; BP diastolic 73–80; PULSE 66–86; RESP 15–22; TEMP 36.3–37; O2SAT 97–99; BMI 21.2
[2023-01-23 08:40] LABS: Glucose Point of Care 100 mg/dl (65-105)
--- NOTE | 2023-01-23 08:44 | PC.NURSE ---
All items secured from room, all pts belongings secured, pt changed into green scrub, breakfast tray ordered for pt.
[2023-01-23 09:33] LABS: Basophils Absolute Auto 0.1 K/mm3 (0.0-0.1); Basophils Percent Auto 0.4 % (0.2-1.2); Eosinophils Absolute Auto 0.1 K/mm3 (0-0.3); Eosinophils Percent Auto 1.1 % (0-4.4); Hematocrit 40.8 % (37.0-47.0); Hemoglobin 14.2 g/dL (12.0-15.0); Immature Granulocyte Absolute 0.06 K/mm3 (0.00-0.031); Immature Granulocyte Percent A 0.5 % (0-0.5); Lymphocytes Absolute Auto 1.54 K/mm3 (0.9-3.2); Lymphocytes Percent Auto 12.9 % (18.3-44.2); Mean Corpuscular HGB Conc 34.8 g/dl (32-36); Mean Corpuscular Hemoglobin 33.2 pg (26-34); Mean Corpuscular Volume 95.3 fl (80-100); Monocytes Absolute Auto 0.8 K/mm3 (0.1-0.6); Monocytes Percent Auto 6.5 % (2.6-8.5); Neutrophils Absolute Auto 9.4 K/mm3 (1.3-6.7); Neutrophils Percent Auto 78.6 % (45.5-73.1); Platelet Count Result 244 k/mm3 (150-375); Red Blood Count 4.28 M/mm3 (4.2-5.4); Red Cell Distribution Width 13.7 % (11.5-14.5)
[2023-01-23 09:45] LABS: Alanine Aminotransferase 46 U/L (6-35); Albumin Level 4.3 g/dL (3.5-5.1); Alkaline Phosphatase 58 U/L (38-126); Anion Gap 6 mmol/L (8-16); Aspartate Amino Transferase 86 U/L (14-36); Bilirubin,Total 0.9 mg/dL (0.2-1.3); Blood Urea Nitrogen 8 mg/dL (7-17); Calcium 8.9 mg/dL (8.4-10.2); Carbon Dioxide 27 mmol/L (22-30); Chloride 105 mmol/L (98-107); Estimated CRCL calculation 118 ml/min; Estimated Glomerular Filt Rate > 60; Glucose 84 mg/dL (65-110); Potassium 3.3 mmol/L (3.4-5.0); Sodium 138 mmol/L (137-145)
[2023-01-23 09:46] LABS: Acetaminophen < 10 ug/mL (10-30); Ethanol < 10 mg/dL (<10)
[2023-01-23 09:48] LABS: Lipase 93 U/L (23-300)
[2023-01-23 09:49] LABS: Creatine Kinase 895 U/L (30-135)
[2023-01-23 09:53] LABS: Amphetamine Screen Urine Negative (Negative); Barbiturate Screen Urine Negative (Negative); Benzodiazepines Screen Urine Negative (Negative); Cannabinoid Screen Urine Positive (Negative); Cocaine Screen Urine Negative (Negative); Methadone Screen Urine Negative (Negative); Opiate Screen Urine Negative (Negative); Phencyclidine Screen Urine Negative (Negative)
[2023-01-23] MEDS: chlordiazePOXIDE (*CRX) 25 MG CAPSULE 50 MG PO (10:19)
[2023-01-23] MEDS: POTASSIUM CHLORIDE 20 MEQ PACKET (FOR LIQUID) 40 MEQ PO (10:19)
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
--- NOTE | 2023-01-23 13:20 | PC.NURSE ---
This patient, Patricia Lundberg, was admitted to Intensive Care Unit-7. Patient/family oriented to hospital policies and general routines including ID bracelet, bed and alarms, visiting hours, pain management, procedures, bathroom and other care routines, personal items, smoking policy, room service/diet, and visiting hours. Information on how to activate the Rapid Response Team has been discussed. Patient/Family are encouraged to report perceived risks to care and to ask questions if they do not understand what they are told or what they should do.
[2023-01-23 14:10] LABS: Add Urine Microscopic? YES; Appearance Urine Clear (Clear); Bacteria Urine Rare /hpf; Bilirubin Urine Negative (Negative); Blood Urine Negative (Negative); Color Urine Yellow (Yellow); Glucose Urine UA Negative (Negative); Hyaline Casts Urine Present /lpf; Ketones Urine Negative (Negative); Leukocyte Esterase Ur 3+ LEU/UL (Negative); Nitrate Urine Negative (Negative); Non Pathogenic Casts 0-2; Protein Urine Negative (Negative); RBC Urine 0-2 /hpf (0-2); Specific Grav Ur 1.014 (1.001-1.035); Squamous Epithelial Cell Urine None seen /hpf (Few); WBC Urine 0-5 /hpf; pH Urine 7.5 (5.0-9.0)
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
--- NOTE | 2023-01-23 15:27 | PM.IMHP ---
H&P: HPI History of Present Illness Date/Time: 01/23/23 13:45 Chief Complaint: Suicidal ideation/gesture. Narrative: This is a 32-year-old transgender man with history of depression, anxiety, posttraumatic stress disorder, asthma, kidney stones, and irritable bowel syndrome, who presented to the emergency department via EMS for evaluation of suicidal ideation/gesture. Patient provides the following history. He is currently homeless and has been staying at a campsite in the [facility]. He has had ongoing issues with recurrent urinary tract infections and intermittent urinary retention and he had a Eid catheter inserted several weeks ago at his doctor's office due to retention. He was seen in the ER couple of days ago with concerns for urinary tract infection and he was prescribed Bactrim for an abnormal urinalysis however urine culture did not grow out anything and he never filled the prescription. He was seen in the emergency department early this morning with concerns for alcohol withdrawal and he ended up leaving against medical advice. Thereafter he felt hopeless and was feeling suicidal. He reports that he tried to run out in front of cars but they still were reviewed to miss him and he put it dog collar on his neck tightly however never attempted to hang himself. He decided that he did want to live and came back in for help. In the ED he was anxious with a CIWA score of 12 and he was given Librium. Bladder scan showed that he was retaining 800 mL of urine and a Eid catheter was reinserted (previous catheter had apparently became dislodged within the last couple of days). He is being admitted in this setting for treatment of alcohol withdrawal until medically cleared for psychiatric evaluation. At the time my evaluation he reports anxiety and sweats as well as pain in his feet from blisters. He denies fever, cold and flu symptoms, nausea, vomiting, and diarrhea. He is not currently suicidal and tells me that he just felt hopeless earlier today though he is feeling better. Review of Systems Review of Systems: Twelve systems were reviewed and are negative except for as per HPI. [facility] Past Medical History Medical History (Updated 01/23/23 @ 23:10 by Cassandra Woodson PA-C) Substance use disorder Tobacco dependence Transgender person on hormone therapy Surgical History Surgical History (Updated 01/23/23 @ 23:05 by Cassandra Woodson PA-C) No history of previous surgery Family History Family History Grandparent Kidney malignancy Breast cancer Heart attack Father Esophageal cancer Diabetes mellitus Mother Thyroid cancer Social History Social History (Updated 01/23/23 @ 23:05 by Cassandra Woodson PA-C) Years smoked: 21 Smoking status: Current every day smoker Tobacco type: cigarettes Alcohol intake: current Alcohol use details: Binge drinker, could not qualify how often and how much alcohol he uses. Substance use type: marijuana Last use: unknown Lack of Transportation: YES Lack of Food: Often True Current Housing: I Do Not Have Housing Concerned About Future Housing: YES Difficulty Paying Gas/Electric Bills: YES Difficulty Paying for Meds: YES Currently Unemployed: Decline to Answer Education: High School Diploma/GED Difficulty w/ Childcare or Family Care: No Gender identity (if verbalized by the patient): Transgender Male Spiritual care concerns: No Meds Home Medications and Allergies Home Medications Medication Instructions Recorded Confirmed Type phenazopyridine 200 mg tablet 200 mg PO TID PRN pain 6 doses #6 01/14/23 01/23/23 Rx tabs albuterol sulfate 90 mcg/actuation 2 puff inhalation Q6H PRN 01/23/23 01/23/23 History aerosol inhaler Shortness Of Breath dicyclomine 10 mg capsule 10 mg PO QID 01/23/23 01/23/23 History gabapentin 600 mg tablet 600 mg PO TID 01/23/23 01/23/23 History testosterone cypion
[2023-01-23] MEDS: chlordiazePOXIDE (*CRX) 25 MG CAPSULE PO ×2 (16:01→23:23)
[2023-01-23] MEDS: NICOTINE (*PBKC) 21 MG PATCH 1 PATCH TRANSDERM (16:07)
[2023-01-23] MEDS: ACETAMINOPHEN 325 MG TABLET 650 MG PO (17:14)
[2023-01-23] MEDS: GABAPENTIN 300 MG CAPSULE 600 MG PO (17:16)
[2023-01-23] MEDS: DICYCLOMINE HCL 10 MG CAPSULE PO ×2 (17:16→20:28)
[2023-01-23] MEDS: LACTATED RINGERS 1,000 ML 100 ML IV CONT (17:18)
[2023-01-23 18:09] LABS: Glucose Point of Care 128 mg/dl (65-105)
[2023-01-23] MEDS: PHENAZOPYRIDINE HCL 100 MG TABLET 200 MG PO (20:28)
[2023-01-23] MEDS: LORazepam INJ (*CRX) 2 MG/ML VIAL IV PUSH (20:28)
[2023-01-23 20:34] LABS: Glucose Point of Care 123 mg/dl (65-105)
[2023-01-24] VITALS (13 sets, daily range): BP systolic 113–125; BP diastolic 79–91; PULSE 61–87; RESP 14–23; TEMP 36.2–36.9; O2SAT 94–97
[2023-01-24] MEDS: LORazepam INJ (*CRX) 2 MG/ML VIAL IV PUSH ×5 (00:07→20:16)
[2023-01-24] MEDS: LACTATED RINGERS 1,000 ML 100 ML IV CONT ×3 (03:55→23:53)
[2023-01-24 04:20] LABS: Hematocrit 42.2 % (37.0-47.0); Hemoglobin 14.1 g/dL (12.0-15.0); Mean Corpuscular HGB Conc 33.4 g/dl (32-36); Mean Corpuscular Hemoglobin 32.7 pg (26-34); Mean Corpuscular Volume 97.9 fl (80-100); Mean Platelet Volume 10.2 fl (7.4-10.4); Platelet Count Result 187 k/mm3 (150-375); Red Blood Count 4.31 M/mm3 (4.2-5.4); Red Cell Distribution Width 13.6 % (11.5-14.5); White Blood Count 10.4 K/mm3 (4.5-10.0)
[2023-01-24 04:32] LABS: Alanine Aminotransferase 33 U/L (6-35); Albumin Level 3.2 g/dL (3.5-5.1); Alkaline Phosphatase 46 U/L (38-126); Anion Gap 2 mmol/L (8-16); Aspartate Amino Transferase 45 U/L (14-36); Bilirubin,Total 0.7 mg/dL (0.2-1.3); Blood Urea Nitrogen 7 mg/dL (7-17); Calcium 8.4 mg/dL (8.4-10.2); Carbon Dioxide 29 mmol/L (22-30); Chloride 106 mmol/L (98-107); Creatine Kinase 356 U/L (30-135); Estimated CRCL calculation 117 ml/min; Estimated Glomerular Filt Rate > 60; Glucose 106 mg/dL (65-110); Magnesium 1.9 mg/dL (1.6-2.3); Potassium 3.4 mmol/L (3.4-5.0); Sodium 137 mmol/L (137-145)
[2023-01-24] MEDS: chlordiazePOXIDE (*CRX) 25 MG CAPSULE PO ×2 (05:16→11:10)
[2023-01-24] MEDS: DICYCLOMINE HCL 10 MG CAPSULE PO ×4 (08:05→20:16)
[2023-01-24] MEDS: GABAPENTIN 300 MG CAPSULE 600 MG PO ×3 (08:05→17:56)
[2023-01-24] MEDS: FOLIC ACID 1 MG TABLET PO (08:06)
[2023-01-24] MEDS: NICOTINE (*PBKC) 21 MG PATCH 1 PATCH TRANSDERM (08:06)
[2023-01-24] MEDS: THIAMINE HCL 100 MG TABLET PO (08:06)
[2023-01-24] MEDS: ACETAMINOPHEN 325 MG TABLET 650 MG PO ×2 (08:11→17:58)
[2023-01-24 08:46] LABS: Glucose Point of Care 106 mg/dl (65-105)
[2023-01-24] MEDS: FLUCONAZOLE 100 MG TABLET PO (10:46)
[2023-01-24 13:07] LABS: Glucose Point of Care 139 mg/dl (65-105)
[2023-01-24] MEDS: PHENAZOPYRIDINE HCL 100 MG TABLET 200 MG PO (14:57)
--- NOTE | 2023-01-24 15:07 | PHAR ---
Home medication Testosterone 200mg/ml injection seen in pharmacy and returned to nurse at window
--- NOTE | 2023-01-24 17:24 | WPDPN ---
Progress Note: A&P Assessment and Plan (1) Suicidal ideation: Code(s): R45.851 - Suicidal ideations Status: Acute (2) Urinary retention: Code(s): R33.9 - Retention of urine, unspecified Status: Acute (3) Alcohol withdrawal: Code(s): F10.939 - Alcohol use, unspecified with withdrawal, unspecified Status: Acute (4) Hypokalemia: Code(s): E87.6 - Hypokalemia Status: Acute (5) Elevated LFTs: Code(s): R79.89 - Other specified abnormal findings of blood chemistry Status: Acute (6) Elevated creatine kinase: Code(s): R74.8 - Abnormal levels of other serum enzymes Status: Acute (7) Tobacco dependence: Code(s): F17.200 - Nicotine dependence, unspecified, uncomplicated Status: Acute (8) Substance use disorder: Code(s): F19.90 - Other psychoactive substance use, unspecified, uncomplicated Status: Inactive (9) Homeless: Code(s): Z59.00 - Homelessness unspecified Status: Inactive Plan The patient presented to the emergency department for evaluation of suicidal ideation and concerns for alcohol withdrawal. Labs, imaging, EKG, and all reports were personally reviewed. He is not currently suicidal and reports that he was despondent earlier today as he felt no but he was interested in helping him. He is being admitted due to concerns for alcohol withdrawal and once medically cleared crisis will need to be consulted. Continue CIWA protocol. Initiate suicide precautions. LFTs are likely elevated due to alcohol use and will be monitored, abdominal exam is benign. Replace potassium and monitor. Eid catheter inserted for urinary retention. Nicotine patch available as needed. His home medications will be reviewed and resumed as appropriate. 01/24/2023 interal history: patient with history of alcohol abuse and currently patient is in withdrawl and has tremors, will increase patient librium to 50mg q6 for 4 doses and monitor, patient is female by however going to tansger to male and receiving testosterone treatment. Also patient has psychiatric illness and sucidal intention, once medically stable will have crisis team evaluate and patient will benefit going to inpatient psychiatric care. Subjective Date/time seen: 01/24/23 17:24 Interval history: Suicidal ideation/gesture. HPI-Narrative: This is a 32-year-old transgender man with history of depression, anxiety, posttraumatic stress disorder, asthma, kidney stones, and irritable bowel syndrome, who presented to the emergency department via EMS for evaluation of suicidal ideation/gesture. Patient provides the following history. He is currently homeless and has been staying at a campsite in the [facility]. He has had ongoing issues with recurrent urinary tract infections and intermittent urinary retention and he had a Eid catheter inserted several weeks ago at his doctor's office due to retention. He was seen in the ER couple of days ago with concerns for urinary tract infection and he was prescribed Bactrim for an abnormal urinalysis however urine culture did not grow out anything and he never filled the prescription. He was seen in the emergency department early this morning with concerns for alcohol withdrawal and he ended up leaving against medical advice. Thereafter he felt hopeless and was feeling suicidal. He reports that he tried to run out in front of cars but they still were reviewed to miss him and he put it dog collar on his neck tightly however never attempted to hang himself. He decided that he did want to live and came back in for help. In the ED he was anxious with a CIWA score of 12 and he was given Librium. Bladder scan showed that he was retaining 800 mL of urine and a Eid catheter was reinserted (previous catheter had apparently became dislodged within the last couple of days). He is being admitted in this setting for treatment of alcohol withdrawal until medically cleared for psychia
[2023-01-24] MEDS: chlordiazePOXIDE (*CRX) 25 MG CAPSULE 50 MG PO ×2 (17:57→23:51)
[2023-01-25] VITALS (10 sets, daily range): BP systolic 109–123; BP diastolic 79–83; PULSE 55–676; RESP 15–20; TEMP 36.6–36.9; O2SAT 97–100
[2023-01-25] MEDS: IBUPROFEN 200 MG TABLET 600 MG PO (00:58)
[2023-01-25] MEDS: LORazepam INJ (*CRX) 2 MG/ML VIAL IV PUSH ×2 (01:45→20:27)
[2023-01-25] MEDS: ONDANSETRON INJ 4 MG/2 ML VIAL IV PUSH (01:46)
[2023-01-25] MEDS: chlordiazePOXIDE (*CRX) 25 MG CAPSULE 50 MG PO ×2 (05:47→11:59)
[2023-01-25] MEDS: GABAPENTIN 300 MG CAPSULE 600 MG PO ×3 (08:32→17:03)
[2023-01-25] MEDS: DICYCLOMINE HCL 10 MG CAPSULE PO ×4 (08:32→20:28)
[2023-01-25] MEDS: FOLIC ACID 1 MG TABLET PO (08:32)
[2023-01-25] MEDS: NICOTINE (*PBKC) 21 MG PATCH 1 PATCH TRANSDERM (08:33)
[2023-01-25] MEDS: THIAMINE HCL 100 MG TABLET PO (08:33)
[2023-01-25 10:38] LABS: Hemoglobin 14.2 g/dL (12.0-15.0); Mean Corpuscular HGB Conc 33.8 g/dl (32-36); Mean Corpuscular Volume 97.7 fl (80-100); Mean Platelet Volume 10.4 fl (7.4-10.4); Platelet Count Result 194 k/mm3 (150-375); Red Cell Distribution Width 13.6 % (11.5-14.5); White Blood Count 8.7 K/mm3 (4.5-10.0)
[2023-01-25 10:50] LABS: Anion Gap 4 mmol/L (8-16); Blood Urea Nitrogen 6 mg/dL (7-17); Calcium 8.7 mg/dL (8.4-10.2); Carbon Dioxide 29 mmol/L (22-30); Chloride 105 mmol/L (98-107); Estimated CRCL calculation 103 ml/min; Estimated Glomerular Filt Rate > 60; Glucose 107 mg/dL (65-110); Potassium 3.9 mmol/L (3.4-5.0); Sodium 138 mmol/L (137-145)
--- NOTE | 2023-01-25 14:30 | WPDPN ---
Progress Note: A&P Assessment and Plan (1) Suicidal ideation: Code(s): R45.851 - Suicidal ideations Status: Acute (2) Urinary retention: Code(s): R33.9 - Retention of urine, unspecified Status: Acute (3) Alcohol withdrawal: Code(s): F10.939 - Alcohol use, unspecified with withdrawal, unspecified Status: Acute (4) Hypokalemia: Code(s): E87.6 - Hypokalemia Status: Acute (5) Elevated LFTs: Code(s): R79.89 - Other specified abnormal findings of blood chemistry Status: Acute (6) Elevated creatine kinase: Code(s): R74.8 - Abnormal levels of other serum enzymes Status: Acute (7) Tobacco dependence: Code(s): F17.200 - Nicotine dependence, unspecified, uncomplicated Status: Acute (8) Substance use disorder: Code(s): F19.90 - Other psychoactive substance use, unspecified, uncomplicated Status: Inactive (9) Homeless: Code(s): Z59.00 - Homelessness unspecified Status: Inactive Plan The patient presented to the emergency department for evaluation of suicidal ideation and concerns for alcohol withdrawal. Labs, imaging, EKG, and all reports were personally reviewed. He is not currently suicidal and reports that he was despondent earlier today as he felt no but he was interested in helping him. He is being admitted due to concerns for alcohol withdrawal and once medically cleared crisis will need to be consulted. Continue CIWA protocol. Initiate suicide precautions. LFTs are likely elevated due to alcohol use and will be monitored, abdominal exam is benign. Replace potassium and monitor. Eid catheter inserted for urinary retention. Nicotine patch available as needed. His home medications will be reviewed and resumed as appropriate. 01/25/2023 interal history: patient with history of alcohol abuse and currently patient is in withdrawl and has tremors, will increase patient librium to 50mg q6 for 4 doses and monitor, patient is female by however going to transgender to male and receiving testosterone treatment. Also patient has psychiatric illness and sucidal intention, patient medically improving, will reassess tomorrow, will have crisis team evaluate and patient will benefit going to inpatient psychiatric care. Subjective Date/time seen: 01/25/23 14:30 Interval history: The patient presented to the emergency department for evaluation of suicidal ideation and concerns for alcohol withdrawal. Labs, imaging, EKG, and all reports were personally reviewed. He is not currently suicidal and reports that he was despondent earlier today as he felt no but he was interested in helping him. He is being admitted due to concerns for alcohol withdrawal and once medically cleared crisis will need to be consulted. Continue CIWA protocol. Initiate suicide precautions. LFTs are likely elevated due to alcohol use and will be monitored, abdominal exam is benign. Replace potassium and monitor. Eid catheter inserted for urinary retention. Nicotine patch available as needed. His home medications will be reviewed and resumed as appropriate. 01/25/2023 interal history: patient with history of alcohol abuse and currently patient is in withdrawl and has tremors, will increase patient librium to 50mg q6 for 4 doses and monitor, patient is female by however going to transgender to male and receiving testosterone treatment. Also patient has psychiatric illness and sucidal intention, patient medically improving, will reassess tomorrow, will have crisis team evaluate and patient will benefit going to inpatient psychiatric care. Review of Systems Review of Systems: Twelve systems were reviewed and are negative except for as per HPI. Exam Narrative: Patient is comfortable, NAD HEENT: eyes are clear and none icteric LUNGS: Normal respiratory effort ABD: Not distended Lower extremities: no edema SKIN: nonjaundiced Neuro: grossly intact.
[2023-01-25] MEDS: chlordiazePOXIDE (*CRX) 25 MG CAPSULE PO (19:18)
[2023-01-26] VITALS (8 sets, daily range): BP systolic 107–132; BP diastolic 71–77; PULSE 57–84; RESP 16–19; TEMP 36.7–36.9; O2SAT 96–98
[2023-01-26] MEDS: chlordiazePOXIDE (*CRX) 25 MG CAPSULE PO (00:20)
[2023-01-26] MEDS: ONDANSETRON INJ 4 MG/2 ML VIAL IV PUSH (00:20)
[2023-01-26] MEDS: LORazepam INJ (*CRX) 2 MG/ML VIAL IV PUSH ×2 (01:20→23:15)
[2023-01-26 08:16] LABS: Hematocrit 46.4 % (37.0-47.0); Hemoglobin 15.5 g/dL (12.0-15.0); Mean Corpuscular HGB Conc 33.4 g/dl (32-36); Mean Corpuscular Hemoglobin 33.3 pg (26-34); Mean Corpuscular Volume 99.8 fl (80-100); Platelet Count Result 202 k/mm3 (150-375); Red Blood Count 4.65 M/mm3 (4.2-5.4); Red Cell Distribution Width 13.7 % (11.5-14.5); White Blood Count 11.1 K/mm3 (4.5-10.0)
[2023-01-26 08:25] LABS: Anion Gap 0 mmol/L (8-16); Blood Urea Nitrogen 9 mg/dL (7-17); Calcium 9.1 mg/dL (8.4-10.2); Carbon Dioxide 35 mmol/L (22-30); Chloride 102 mmol/L (98-107); Estimated CRCL calculation 91 ml/min; Estimated Glomerular Filt Rate > 60; Glucose 93 mg/dL (65-110); Potassium 4.5 mmol/L (3.4-5.0); Sodium 137 mmol/L (137-145)
[2023-01-26] MEDS: FOLIC ACID 1 MG TABLET PO (08:36)
[2023-01-26] MEDS: THIAMINE HCL 100 MG TABLET PO (08:36)
[2023-01-26] MEDS: DICYCLOMINE HCL 10 MG CAPSULE PO ×4 (08:36→23:16)
[2023-01-26] MEDS: NICOTINE (*PBKC) 21 MG PATCH 1 PATCH TRANSDERM (08:36)
[2023-01-26] MEDS: GABAPENTIN 300 MG CAPSULE 600 MG PO ×3 (08:36→16:49)
[2023-01-26 11:28] LABS: EDCOVIDSCREEN Negative (Negative)
--- NOTE | 2023-01-26 17:31 | WPDPN ---
Progress Note: A&P Assessment and Plan (1) Suicidal ideation: Code(s): R45.851 - Suicidal ideations Status: Acute (2) Urinary retention: Code(s): R33.9 - Retention of urine, unspecified Status: Acute (3) Alcohol withdrawal: Code(s): F10.939 - Alcohol use, unspecified with withdrawal, unspecified Status: Acute (4) Hypokalemia: Code(s): E87.6 - Hypokalemia Status: Acute (5) Elevated LFTs: Code(s): R79.89 - Other specified abnormal findings of blood chemistry Status: Acute (6) Elevated creatine kinase: Code(s): R74.8 - Abnormal levels of other serum enzymes Status: Acute (7) Tobacco dependence: Code(s): F17.200 - Nicotine dependence, unspecified, uncomplicated Status: Acute (8) Substance use disorder: Code(s): F19.90 - Other psychoactive substance use, unspecified, uncomplicated Status: Inactive (9) Homeless: Code(s): Z59.00 - Homelessness unspecified Status: Inactive Plan The patient presented to the emergency department for evaluation of suicidal ideation and concerns for alcohol withdrawal. Labs, imaging, EKG, and all reports were personally reviewed. He is not currently suicidal and reports that he was despondent earlier today as he felt no but he was interested in helping him. He is being admitted due to concerns for alcohol withdrawal and once medically cleared crisis will need to be consulted. Continue CIWA protocol. Initiate suicide precautions. LFTs are likely elevated due to alcohol use and will be monitored, abdominal exam is benign. Replace potassium and monitor. Eid catheter inserted for urinary retention. Nicotine patch available as needed. His home medications will be reviewed and resumed as appropriate. 01/26/2023 interal history: patient with history of alcohol abuse and currently patient is in withdrawl and has tremors, will increase patient librium to 50mg q6 for 4 doses and monitor, patient is female by however going to transgender to male and receiving testosterone treatment. Also patient has psychiatric illness and sucidal intention, patient medically improving, and clinically stable, today will have crisis team evaluate and patient will benefit going to inpatient psychiatric care. Subjective Date/time seen: 01/26/23 17:31 Interval history: The patient presented to the emergency department for evaluation of suicidal ideation and concerns for alcohol withdrawal. Labs, imaging, EKG, and all reports were personally reviewed. He is not currently suicidal and reports that he was despondent earlier today as he felt no but he was interested in helping him. He is being admitted due to concerns for alcohol withdrawal and once medically cleared crisis will need to be consulted. Continue CIWA protocol. Initiate suicide precautions. LFTs are likely elevated due to alcohol use and will be monitored, abdominal exam is benign. Replace potassium and monitor. Eid catheter inserted for urinary retention. Nicotine patch available as needed. His home medications will be reviewed and resumed as appropriate. 01/26/2023 interal history: patient with history of alcohol abuse and currently patient is in withdrawl and has tremors, will increase patient librium to 50mg q6 for 4 doses and monitor, patient is female by however going to transgender to male and receiving testosterone treatment. Also patient has psychiatric illness and sucidal intention, patient medically improving, and clinically stable, today will have crisis team evaluate and patient will benefit going to inpatient psychiatric care. Review of Systems Review of Systems: Twelve systems were reviewed and are negative except for as per HPI. Exam Narrative: Patient is comfortable, NAD HEENT: eyes are clear and none icteric LUNGS: Normal respiratory effort ABD: Not distended Lower extremities: no edema SKIN: nonjaundiced Neuro: crow
--- NOTE | 2023-01-26 19:30 | PC.NURSE ---
[facility] called. Pt voluntary and does not want to go to [facility]
--- NOTE | 2023-01-26 20:20 | PC.NURSE ---
recieved call from [facility] ([facility]) they need Hospitalist note to state MEDICALLY CLEARED FOR TRANSPORT AND PSYCHIATRIC ADMISSION and documentation of test.
[2023-01-26] MEDS: IBUPROFEN 200 MG TABLET 600 MG PO (23:15)
[2023-01-26] MEDS: SUMAtriptan SUCCINATE 25 MG TABLET 50 MG PO (23:16)
[2023-01-27] VITALS: PULSE 52; PULSE 58; RESP 16
[2023-01-27 04:00] VITALS: PULSE 55; PULSE 58
[2023-01-27 08:00] VITALS: BP 102/68; PULSE 46; RESP 17; TEMP 36.4; O2SAT 96
[2023-01-27] MEDS: GABAPENTIN 300 MG CAPSULE 600 MG PO ×2 (08:57→12:50)
[2023-01-27] MEDS: NICOTINE (*PBKC) 21 MG PATCH 1 PATCH TRANSDERM (08:57)
[2023-01-27] MEDS: DICYCLOMINE HCL 10 MG CAPSULE PO ×2 (08:57→12:49)
[2023-01-27] MEDS: FOLIC ACID 1 MG TABLET PO (08:58)
[2023-01-27] MEDS: THIAMINE HCL 100 MG TABLET PO (08:58)
[2023-01-27] MEDS: chlordiazePOXIDE (*CRX) 25 MG CAPSULE PO (11:38)
[2023-01-27 12:00] VITALS: PULSE 83
--- NOTE | 2023-01-27 13:26 | PM.DS ---
DS: Admitting Diagnosis Discharge Date 01/27/2023 Admitting Diagnosis Suicidal ideation/gesture. DS: Discharge Diagnosis Discharge Diagnosis (1) Suicidal ideation: Code(s): R45.851 - Suicidal ideations Status: Acute (2) Urinary retention: Code(s): R33.9 - Retention of urine, unspecified Status: Acute (3) Alcohol withdrawal: Code(s): F10.939 - Alcohol use, unspecified with withdrawal, unspecified Status: Acute (4) Hypokalemia: Code(s): E87.6 - Hypokalemia Status: Acute (5) Elevated LFTs: Code(s): R79.89 - Other specified abnormal findings of blood chemistry Status: Acute (6) Elevated creatine kinase: Code(s): R74.8 - Abnormal levels of other serum enzymes Status: Acute (7) Tobacco dependence: Code(s): F17.200 - Nicotine dependence, unspecified, uncomplicated Status: Acute (8) Substance use disorder: Code(s): F19.90 - Other psychoactive substance use, unspecified, uncomplicated Status: Inactive (9) Homeless: Code(s): Z59.00 - Homelessness unspecified Status: Inactive Plan The patient presented to the emergency department for evaluation of suicidal ideation and concerns for alcohol withdrawal. Labs, imaging, EKG, and all reports were personally reviewed. He is not currently suicidal and reports that he was despondent earlier today as he felt no but he was interested in helping him. He is being admitted due to concerns for alcohol withdrawal and once medically cleared crisis will need to be consulted. Continue CIAK protocol. Initiate suicide precautions. LFTs are likely elevated due to alcohol use and will be monitored, abdominal exam is benign. Replace potassium and monitor. Eid catheter inserted for urinary retention. Nicotine patch available as needed. His home medications will be reviewed and resumed as appropriate. 01/26/2023 interal history: patient with history of alcohol abuse and currently patient is in withdrawl and has tremors, will increase patient librium to 50mg q6 for 4 doses and monitor, patient is female by however going to transgender to male and receiving testosterone treatment. Also patient has psychiatric illness and sucidal intention, patient medically improving, and clinically stable, today will have crisis team evaluate and patient will benefit going to inpatient psychiatric care. DS: Summary Hospital Course Reason for hospitalization: Suicidal ideation/gesture. Narrative: This is a 32-year-old transgender man with history of depression, anxiety, posttraumatic stress disorder, asthma, kidney stones, and irritable bowel syndrome, who presented to the emergency department via EMS for evaluation of suicidal ideation/gesture. Patient provides the following history. He is currently homeless and has been staying at a campsite in the [facility]. He has had ongoing issues with recurrent urinary tract infections and intermittent urinary retention and he had a Eid catheter inserted several weeks ago at his doctor's office due to retention. He was seen in the ER couple of days ago with concerns for urinary tract infection and he was prescribed Bactrim for an abnormal urinalysis however urine culture did not grow out anything and he never filled the prescription. He was seen in the emergency department early this morning with concerns for alcohol withdrawal and he ended up leaving against medical advice. Thereafter he felt hopeless and was feeling suicidal. He reports that he tried to run out in front of cars but they still were reviewed to miss him and he put it dog collar on his neck tightly however never attempted to hang himself. He decided that he did want to live and came back in for help. In the ED he was anxious with a CIWA score of 12 and he was given Librium. Bladder scan showed that he was retaining 800 mL of urine and a Eid catheter was reinserted (previous catheter had apparently became dislodged within
--- NOTE | 2023-01-27 14:29 | PC.NURSE ---
Pt dc'd to Dr. Kelly Luciano notified prior and did discharge instructions, copy sent with pt, Niecy in care coordination notified of discharge, Lovissa here and took pt with his four bags of belongings and a cane at 1420
== END 2023-01-27 14:20 ==
LOC: ANHED 08:59 → ANHICU 13:05
PROVIDERS: Internal Medicine; Physician Assistant; Admitting Provider Family Medicine; Emergency Provider General Practice; PCP Hospitalist; Visit Provider Family Medicine
DX: R45.851 Suicidal ideations (principal); R33.9 Retention of urine, unspecified; Z59.00 Homelessness unspecified; R79.89 Other specified abnormal findings of blood chemistry; R74.8 Abnormal levels of other serum enzymes; F32.A Depression, unspecified; F41.9 Anxiety disorder, unspecified; F43.10 Post-traumatic stress disorder, unspecified; J45.909 Unspecified asthma, uncomplicated; K58.9 Irritable bowel syndrome, unspecified; M79.672 Pain in left foot; M79.671 Pain in right foot; S90.822A Blister (nonthermal), left foot, initial encounter; S90.821A Blister (nonthermal), right foot, initial encounter; Z20.822 Contact with and (suspected) exposure to COVID-19; F12.90 Cannabis use, unspecified, uncomplicated; F11.90 Opioid use, unspecified, uncomplicated; F10.939 Alcohol use, unspecified with withdrawal, unspecified; Y90.0 Blood alcohol level of less than 20 mg/100 ml; F17.210 Nicotine dependence, cigarettes, uncomplicated; Z79.51 Long term (current) use of inhaled steroids; Z79.899 Other long term (current) drug therapy
CPT/HCPCS: 36415; 80048; 80053; 80307; 81001; 81025; 82550; 82948; 83690; 83735; 84443; 85025; 85027; 87426; 96360; 96361; 96365; 96366; 96372; 96374; 96375; 96376; 99283; 99285; A9270; C9803; G0378; G0379; J2060; J2405; J7030; J7120; J7121

== ENCOUNTER 2023-12-10 15:11 | Emergency (ER) | payer OTHER, SELFPAY ==
[2023-12-10 15:13] VITALS: BP 129/80; PULSE 79; RESP 16; TEMP 36.6; O2SAT 98
[2023-12-10] MEDS: LIDOCAINE HCL 2% GEL UROJET 10 ML PKG MUCOUS MEM (15:53)
[2023-12-10 15:56] VITALS: BP 115/71; PULSE 63; RESP 18; O2SAT 96
[2023-12-10 15:59] LABS: Appearance Urine Clear (Clear); Bacteria Urine 1+ /hpf; Bilirubin Urine Negative (Negative); Blood Urine Negative (Negative); Color Urine Yellow (Yellow); Glucose Urine UA Negative (Negative); Ketones Urine Negative (Negative); Leukocyte Esterase Ur 1+ LEU/UL (Negative); Need Manual Microscopic Reviewed; Nitrate Urine Negative (Negative); Non Pathogenic Casts 0-2; Protein Urine Negative (Negative); Specific Grav Ur 1.008 (1.001-1.035); Squamous Epithelial Cell Urine None Seen /hpf (Few); Urobilinogen Urine 0.2 mg/dL (<2.0); pH Urine 7.5 (5.0-9.0)
[2023-12-10 16:00] LABS: Add Urine Microscopic? YES
--- NOTE | 2023-12-10 17:00 | PC.NURSE ---
Pt refused Rocephin standing in [place] stating he was going home
[2023-12-10 17:01] VITALS: BP 108/58; PULSE 55; RESP 16; TEMP 36.7; O2SAT 99
--- NOTE | 2023-12-10 17:11 | ED.ABDPAIN ---
HPI - Abdominal Pain General Chief Complaint: Abdominal Pain Stated Complaint: blood in urine after pulling out indwelling oliver Time Seen by Provider: 12/10/23 15:12 History of Present Illness HPI narrative: Patient with history of indwelling Oliver catheter accidentally pulled it out while having a bowel movement, he has already seen his urologist who replaced it, however patient was very worried because occasionally he will see blood in it still. He was told to go to the ER for urinalysis and culture Related Data Home Medications Medication Instructions Recorded Confirmed lamotrigine 25 mg tablet 25 mg PO DAILY 06/02/21 06/02/21 risperidone 1 mg tablet 0.5 mg PO DAILY 06/02/21 06/02/21 albuterol sulfate 90 mcg/actuation 2 puff inhalation Q6H PRN 01/23/23 01/23/23 aerosol inhaler Shortness Of Breath dicyclomine 10 mg capsule 10 mg PO QID 01/23/23 01/23/23 gabapentin 600 mg tablet 600 mg PO TID 01/23/23 01/23/23 testosterone cypionate 200 mg/mL 80 mg IM WEEKLY 01/23/23 01/23/23 intramuscular oil Allergies Allergy/AdvReac Type Severity Reaction Status Date / Time allantoin [From Orajel] Allergy swelling Verified 01/24/23 08:09 gums bee venom protein (honey bee) Allergy Other Verified 01/24/23 08:09 benzalkonium chloride Allergy swelling Verified 01/24/23 08:09 [From Orajel] gums benzocaine [From Orajel] Allergy swelling Verified 01/24/23 08:09 gums carbamide peroxide Allergy swelling Verified 01/24/23 08:09 [From Orajel] gums latex Allergy Hives Verified 12/10/23 15:23 menthol Allergy Other Verified 01/24/23 08:09 trazodone Allergy Other Verified 01/24/23 08:09 zinc chloride [From Orajel] Allergy swelling Verified 01/24/23 08:09 gums tamsulosin [From Flomax] AdvReac Severe Other Verified 01/24/23 13:38 sertraline AdvReac Unknown Hallucinati Verified 01/24/23 08:09 ng Review of Systems Review of Systems: All systems reviewed & are unremarkable except as noted in HPI and below PMFSH Past Medical History Medical History (Updated 12/10/23 @ 16:20 by Jolanta Chase MD) Asthma Bipolar 1 disorder Collapsed lung Concussion COPD (chronic obstructive pulmonary disease) Fracture, clavicle Fracture, ribs Fractured nose Substance use disorder Tobacco dependence Transgender person on hormone therapy UTI (urinary tract infection) Surgical History Surgical History (Updated 01/24/23 @ 08:09 by Benjamin Montesinos) H/O chest tube placement No history of previous surgery Family History Family History Grandparent Kidney malignancy Breast cancer Heart attack Father Esophageal cancer Diabetes mellitus Mother Thyroid cancer Social History Social History (System 01/24/23 @ 08:09 by Benjamin Montesinos) Smoking packs per day: 1 Smoking cigarettes per day: 20.0 Years smoked: 19 Smoking pack-years: 19.00 Smoking status: Current every day smoker Tobacco type: cigarettes Alcohol intake: former Alcohol use details: going to meetings Substance use: current Substance use type: marijuana Last use: unknown Lack of Transportation: YES Lack of Food: Often True Current Housing: I Do Not Have Housing Concerned About Future Housing: YES Difficulty Paying Gas/Electric Bills: YES Difficulty Paying for Meds: YES Currently Unemployed: Decline to Answer Education: High School Diploma/GED Difficulty w/ Childcare or Family Care: No Living arrangements: with family Gender identity (if verbalized by the patient): Female Spiritual care concerns: No Exam Narrative: EXAMINATION OF ORGAN SYSTEMS/BODY AREAS: Constitutional: Vital signs per nursing GENERAL:[No acute distress, non-toxic appearing.] HEAD: Normal with no signs of head trauma. EYES: EOMI, conjunctiva normal ENT: Hearing grossly intact LUNGS: Nonlabored breathing. HEART: [Regular rate and rhythm] ABD: [Soft], [minimally tender to
== END 2023-12-10 17:04 | disposition home or self-care (01) ==
PROVIDERS: Emergency Provider Emergency Medicine; PCP Hospitalist
DX: N39.0 Urinary tract infection, site not specified (principal); F17.210 Nicotine dependence, cigarettes, uncomplicated; F31.9 Bipolar disorder, unspecified; J44.9 Chronic obstructive pulmonary disease, unspecified
CPT/HCPCS: 81001; 87077; 87086; 87088; 87181; 99283

== ENCOUNTER 2024-01-16 20:18 | Emergency (ER) | payer SELFPAY ==
--- NOTE | 2024-01-16 | ECG_ITS ---
Test Date: 2024-01-16 20:28:33 Measurements Intervals [place] Rate: 82 P: 68 LA: 135 QRS: 75 QRSD: 88 T: 52 QT: 357 QTc: 419 Interpretive Statements SINUS RHYTHM LEFT ATRIAL ENLARGEMENT [-0.15mV P WAVE IN V1/V2] INCOMPLETE RIGHT BUNDLE BRANCH BLOCK No previous ECG available for comparison Electronically Signed On 01-17-2024 13:31:51 CDT by Kiersten Mendoza M.D.
[2024-01-16 20:15] VITALS: BP 126/79; PULSE 88; RESP 18; O2SAT 96
[2024-01-16 20:35] VITALS: O2SAT 98
[2024-01-16 20:41] LABS: Basophils Absolute Auto 0.1 K/mm3 (0.0-0.1); Basophils Percent Auto 0.4 % (0.2-1.2); Eosinophils Absolute Auto 0.1 K/mm3 (0-0.3); Eosinophils Percent Auto 0.4 % (0-4.4); Hematocrit 41.9 % (42.0-52.0); Hemoglobin 14.4 g/dL (14.0-18.0); Immature Granulocyte Absolute 0.05 K/mm3 (0.00-0.031); Immature Granulocyte Percent A 0.4 % (0-0.5); Lymphocytes Absolute Auto 2.01 K/mm3 (0.9-3.2); Mean Corpuscular HGB Conc 34.4 g/dl (32-36); Mean Corpuscular Hemoglobin 32.4 pg (26-34); Mean Corpuscular Volume 94.4 fl (80-100); Mean Platelet Volume 10.3 fl (7.4-10.4); Monocytes Absolute Auto 0.7 K/mm3 (0.1-0.6); Monocytes Percent Auto 5.2 % (2.6-8.5); Neutrophils Absolute Auto 10.5 K/mm3 (1.3-6.7); Neutrophils Percent Auto 78.6 % (45.5-73.1); Platelet Count Result 213 k/mm3 (150-375); Red Blood Count 4.44 M/mm3 (4.6-6.20); Red Cell Distribution Width 13.2 % (11.5-14.5); White Blood Count 13.4 K/mm3 (4.5-10.0)
[2024-01-16 20:55] LABS: INR 1.1; Prothrombin Time 14.4 Seconds (11.1-14.7)
[2024-01-16 20:56] LABS: Partial Thromboplastin Time 26.5 Seconds (22.3-36.8)
[2024-01-16 21:03] LABS: Alanine Aminotransferase 17 U/L (6-35); Albumin Level 4.9 g/dL (3.5-5.1); Alkaline Phosphatase 55 U/L (38-126); Anion Gap 10 mmol/L (4-12); Aspartate Amino Transferase 31 U/L (14-36); Bilirubin,Total 0.7 mg/dL (0.2-1.3); Blood Urea Nitrogen 11 mg/dL (7-17); Calcium 9.7 mg/dL (8.4-10.2); Carbon Dioxide 25 mmol/L (22-30); Chloride 106 mmol/L (98-107); Estimated CRCL calculation 74 ml/min; Estimated Glomerular Filt Rate > 60; Glucose 87 mg/dL (65-110); Potassium 3.1 mmol/L (3.4-5.0); Sodium 141 mmol/L (137-145)
[2024-01-16 21:11] LABS: Appearance Urine Clear (Clear); Bacteria Urine 2+ /hpf; Bilirubin Urine Negative (Negative); Blood Urine Negative (Negative); Color Urine Yellow (Yellow); Glucose Urine UA Negative (Negative); Ketones Urine Negative (Negative); Leukocyte Esterase Ur 1+ LEU/UL (Negative); Nitrate Urine Positive (Negative); Non Pathogenic Casts 0-2; Protein Urine Negative (Negative); RBC Urine 0-2 /hpf (0-2); Specific Grav Ur 1.011 (1.001-1.035); Squamous Epithelial Cell Urine None Seen /hpf (Few); Urobilinogen Urine 0.2 mg/dL (<2.0)
[2024-01-16 21:13] LABS: Add Urine Microscopic? YES
--- NOTE | 2024-01-16 21:21 | PC.NURSE ---
Pt is now A&O x4 and requesting to leave. Pt states their name, birthday, current year, and president correctly. Pt left before being seen by a provider. IV was removed.
== END 2024-01-16 21:21 | disposition left against medical advice (07) ==
LOC: ANHED 21:26
PROVIDERS: Emergency Provider Student in an Organized Health Care Education/Training Program
DX: R41.82 Altered mental status, unspecified (principal)
CPT/HCPCS: 36415; 80053; 81001; 85025; 85610; 85730; 87077; 87086; 87088; 87186; 93005; 99199

== ENCOUNTER 2024-03-21 15:48 | Emergency (ER) | payer OTHER, SELFPAY ==
[2024-03-21 15:58] VITALS: BP 129/78; PULSE 69; RESP 16; TEMP 36.5; O2SAT 99
--- NOTE | 2024-03-21 16:05 | ED.GENADULT ---
HPI - General Adult General Chief complaint: Urogenital-Female Stated complaint: urinary catheter issues History of Present Illness HPI narrative: 33 old transition to male presents emergency department for evaluation for suprapubic abdominal pain. Patient does have a suprapubic Eid catheter for the last few years secondary to an atonic bladder. Patient states that the Eid catheter gets changed once a month. Patient's Eid catheterization is Band-Aid-ed to their abdomen and is not fastened with a proper device. Related Data Home Medications Medication Instructions Recorded Confirmed lamotrigine 25 mg tablet 25 mg PO DAILY 06/02/21 06/02/21 risperidone 1 mg tablet 0.5 mg PO DAILY 06/02/21 06/02/21 albuterol sulfate 90 mcg/actuation 2 puff inhalation Q6H PRN 01/23/23 01/23/23 aerosol inhaler Shortness Of Breath dicyclomine 10 mg capsule 10 mg PO QID 01/23/23 01/23/23 gabapentin 600 mg tablet 600 mg PO TID 01/23/23 01/23/23 testosterone cypionate 200 mg/mL 80 mg IM WEEKLY 01/23/23 01/23/23 intramuscular oil Allergies Allergy/AdvReac Type Severity Reaction Status Date / Time allantoin [From Orajel] Allergy swelling Verified 03/21/24 15:54 gums bee venom protein (honey bee) Allergy Other Verified 03/21/24 15:54 benzalkonium chloride Allergy swelling Verified 03/21/24 15:54 [From Orajel] gums benzocaine [From Orajel] Allergy swelling Verified 03/21/24 15:54 gums carbamide peroxide Allergy swelling Verified 03/21/24 15:54 [From Orajel] gums latex Allergy Hives Verified 03/21/24 15:54 menthol Allergy Other Verified 03/21/24 15:54 trazodone Allergy Other Verified 03/21/24 15:54 zinc chloride [From Orajel] Allergy swelling Verified 03/21/24 15:54 gums tamsulosin [From Flomax] AdvReac Severe Other Verified 03/21/24 15:54 sertraline AdvReac Unknown Hallucinati Verified 01/24/23 08:09 ng Review of Systems Review of Systems: All systems reviewed & are unremarkable except as noted in HPI and below PMFSH Past Medical History Medical History (Updated 03/21/24 @ 17:21 by Davion Grossman MD) Asthma Bipolar 1 disorder Collapsed lung Concussion COPD (chronic obstructive pulmonary disease) Fracture, clavicle Fracture, ribs Fractured nose Substance use disorder Tobacco dependence Transgender person on hormone therapy UTI (urinary tract infection) Surgical History Surgical History (Updated 01/24/23 @ 08:09 by Benjamin Montesinos) H/O chest tube placement No history of previous surgery Family History Family History Grandparent Kidney malignancy Breast cancer Heart attack Father Esophageal cancer Diabetes mellitus Mother Thyroid cancer Social History Social History (System 01/24/23 @ 08:09 by Benjamin Montesinos) Smoking packs per day: 1 Smoking cigarettes per day: 20.0 Years smoked: 19 Smoking pack-years: 19.00 Smoking status: Current every day smoker Tobacco type: cigarettes Alcohol intake: former Alcohol use details: going to meetings Substance use: current Substance use type: marijuana Last use: unknown Lack of Transportation: YES Lack of Food: Often True Current Housing: I Do Not Have Housing Concerned About Future Housing: YES Difficulty Paying Gas/Electric Bills: YES Difficulty Paying for Meds: YES Currently Unemployed: Decline to Answer Education: High School Diploma/GED Difficulty w/ Childcare or Family Care: No Living arrangements: with family Gender identity (if verbalized by the patient): Female Spiritual care concerns: No Exam Narrative: APPEARANCE: Well appearing, no pain, no distress, well-nourished. HEAD: normocephalic, atraumatic. EYES: PERRLA/EOMI, conjunctivae clear. NOSE: Normal no drainage EARS:TMS clear with good light reflex. THROAT: Pharynx clear, no exudate. NECK: Supple. No adenopathy, no masses. RESPIRATORY: Airway patent, respiration
--- NOTE | 2024-03-21 16:11 | PC.NURSE ---
Spoke with pt's urology office concerning catheter size. pt has a 16F latex free oliver catheter per office.
--- NOTE | 2024-03-21 16:19 | PC.NURSE ---
pt requesting not to receive IV fluids until after catheter has been changed. central supply contacted for latex free catheter.
[2024-03-21] MEDS: SODIUM CHLORIDE 0.9% IV 1,000 ML 999 ML IV CONT (16:42)
[2024-03-21 16:43] LABS: Basophils Absolute Auto 0.1 K/mm3 (0.0-0.1); Basophils Percent Auto 0.5 % (0.2-1.2); Eosinophils Absolute Auto 0.1 K/mm3 (0-0.3); Eosinophils Percent Auto 1.3 % (0-4.4); Hematocrit 47.2 % (37.0-47.0); Hemoglobin 16.2 g/dL (12.0-15.0); Immature Granulocyte Absolute 0.03 K/mm3 (0.00-0.031); Immature Granulocyte Percent A 0.3 % (0-0.5); Lymphocytes Absolute Auto 1.55 K/mm3 (0.9-3.2); Lymphocytes Percent Auto 16.7 % (18.3-44.2); Mean Corpuscular HGB Conc 34.3 g/dl (32-36); Mean Corpuscular Hemoglobin 32.7 pg (26-34); Mean Corpuscular Volume 95.4 fl (80-100); Mean Platelet Volume 10.4 fl (7.4-10.4); Monocytes Absolute Auto 0.7 K/mm3 (0.1-0.6); Monocytes Percent Auto 7.9 % (2.6-8.5); Neutrophils Absolute Auto 6.8 K/mm3 (1.3-6.7); Neutrophils Percent Auto 73.3 % (45.5-73.1); Platelet Count Result 212 k/mm3 (150-375); Red Blood Count 4.95 M/mm3 (4.2-5.4); Red Cell Distribution Width 13.8 % (11.5-14.5); White Blood Count 9.3 K/mm3 (4.5-10.0)
[2024-03-21 16:49] LABS: Alanine Aminotransferase 18 U/L (6-35); Albumin Level 4.5 g/dL (3.5-5.1); Alkaline Phosphatase 49 U/L (38-126); Anion Gap 9 mmol/L (4-12); Aspartate Amino Transferase 21 U/L (14-36); Bilirubin,Total 0.6 mg/dL (0.2-1.3); Blood Urea Nitrogen 11 mg/dL (7-17); Calcium 9.5 mg/dL (8.4-10.2); Carbon Dioxide 26 mmol/L (22-30); Chloride 105 mmol/L (98-107); Estimated CRCL calculation 83 ml/min; Estimated Glomerular Filt Rate > 60; Glucose 129 mg/dL (65-110); Potassium 3.9 mmol/L (3.4-5.0); Sodium 140 mmol/L (137-145)
[2024-03-21 16:50] LABS: Add Urine Microscopic? YES; Appearance Urine Turbid (Clear); Bacteria Urine None Seen /hpf; Bilirubin Urine Negative (Negative); Blood Urine 1+ (Negative); Color Urine Dark Yellow (Yellow); Glucose Urine UA Negative (Negative); Ketones Urine Negative (Negative); Leukocyte Esterase Ur 1+ LEU/UL (Negative); Nitrate Urine Negative (Negative); Protein Urine 1+ mg/dL (Negative); RBC Urine 21-50 /hpf (0-2); Specific Grav Ur 1.028 (1.001-1.035); Squamous Epithelial Cell Urine None Seen /hpf (Few)
[2024-03-21] MEDS: CEPHALEXIN 500 MG CAPSULE PO (17:31)
== END 2024-03-21 17:43 | disposition home or self-care (01) ==
PROVIDERS: Emergency Provider Emergency Medicine; PCP Hospitalist
DX: N39.0 Urinary tract infection, site not specified (principal); J44.9 Chronic obstructive pulmonary disease, unspecified; F31.9 Bipolar disorder, unspecified; F17.210 Nicotine dependence, cigarettes, uncomplicated; F64.0 Transsexualism; Z79.890 Hormone replacement therapy; Z79.899 Other long term (current) drug therapy
CPT/HCPCS: 36415; 51705; 80053; 81001; 85025; 87077; 87086; 87088; 87186; 99283; A9270; J7030